=== PATIENT | male | born 1990 | race Caucasian/White ===

== ENCOUNTER 2022-01-21 17:57 | Emergency (ER) | payer MEDICAID, OTHER ==
[~2022-01-21] VITALS: Ht 180.3 cm; Wt 98.0 kg
[2022-01-21 18:11] VITALS: BP 142/97
== END 2022-01-21 19:55 | disposition left against medical advice (07) ==
LOC: ER 17:57
DX: Z53.21 Procedure and treatment not carried out due to patient leaving prior to being seen by health care provider (principal)